=== PATIENT | female | born 1980 | race Caucasian/White ===

== ENCOUNTER 2016-08-27 17:51 | Emergency (ER) | payer MEDICAID, OTHER ==
[2016-08-27 18:02] VITALS: BP 137/72
[2016-08-27] MEDS ORDERED: Ibuprofen TAB* 600 MG PO ONE ×2 (18:54)
[2016-08-27] MEDS ORDERED: Cyclobenzaprine TAB* 10 MG PO ONE ×2 (18:54)
[2016-08-27] MEDS ORDERED: Lidocaine PATCH 5%* 1 PATCH TRANSDERM SCH (20:00)
[2016-08-27] MEDS ORDERED: Lidocaine PATCH 5%* 1 PATCH ONE ×2 (20:30)
--- NOTE | 2016-08-27 21:06 | ED ---
Back Pain - HPI Summary HPI Summary: 36 y/o female s/p fall on ice yesterday, fell backwards, hitting head and full body on ground, denies LOC, mild headache currently but right frontal- h/o migraines that happen in this area, unsure if this is why, no lightheadedness, dizziness, no N/V, vision changes. Patient c/o Neck pain, anterior, L sided. no difficulty swallowing, no difficulty walking. + lower back pain, midline lower back. + diffuse abdominal pain, "feels like muscel pain". + eating well , no blood urine/ stool, + normal urine stool since incident. last ate chicken salad sandwich without any problems. 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 Onset/Duration: Sudden Onset, Lasting Days, Still Present, Worse Since - This AM Timing: Constant, Lasting Hours Back Pain Location: Is Discrete @ - L front neck Severity Initially: Moderate Severity Currently: Moderate Pain Intensity: 5 Pain Scale Used: 0-10 Numeric <Rosa Swain - Last Filed: 08/27/16 21:07> <Itz Callaway - Last Filed: 09/04/16 23:24> - History of Current Complaint Chief Complaint: EDHeadInjury Stated Complaint: FELL/HEAD NECK PAIN Time Seen by Provider: 08/27/16 18:27 - Allergies/Home Medications Allergies/Adverse Reactions: Allergies Allergy/AdvReac Type Severity Reaction Status Date / Time Codeine Allergy Unknown Unknown Verified 12/10/15 22:11 [From Tylenol W/Codeine] Reaction Details Cefaclor [From Ceclor] Allergy Hives Verified 12/10/15 22:11 Cefuroxime [From Ceftin] Allergy Hives Verified 12/10/15 22:11 Clindamycin Allergy Rash And Verified 12/10/15 22:11 Itching Morphine Allergy Vomiting Verified 12/10/15 22:11 PMH/Surg Hx/FS Hx/Imm Hx Previously Healthy: No Endocrine/Hematology History: Reports: Hx Anemia Denies: Hx Diabetes Cardiovascular History: Denies: Hx Congestive Heart Failure, Hx Hypertension Respiratory History: Denies: Hx Sleep Apnea - pt feels she has but has not been checked History: Reports: Hx Kidney Stones, Other Problems/Disorders - hx UTI, not currently Denies: Hx Renal Disease Neurological History: Reports: Hx Migraine, Other Neuro Impairments/Disorders - blurry vision, restless leg lately - Surgical History Surgery Procedure, Year, and Place: [place], [place], tonsilectomy, x3, tubal ligation - Immunization History Date of Tetanus Vaccine: unknown Date of Influenza Vaccine: unknown Infectious Disease History: No Infectious Disease History: Denies: History Other Infectious Disease, Traveled Outside the [place] in Last 30 Days - Family History Known Family History: Positive: Other - noncontributory - Social History Alcohol Use: None Hx Substance Use: No Substance Use Type: Reports: Excessive Caffeine Hx Tobacco Use: Yes Smoking Status (MU): Light Every Day Tobacco Smoker Type: Cigarettes Amount Used/How Often: 1/2 PPD <Rosa Swain - Last Filed: 08/27/16 21:07> Review of Systems Constitutional: Negative Eyes: Negative ENT: Negative Cardiovascular: Negative Respiratory: Negative Positive: Abdominal Pain Genitourinary: Negative Positive: Arthralgia - lower back , Myalgia Skin: Negative Positive: Headache - mild right frontal Psychological: Normal All Other Systems Reviewed And Are Negative: Yes <Rosa Swain - Last Filed: 08/27/16 21:07> Physical Exam Triage Information Reviewed: Yes Vital Signs On Initial Exam: Initial Vitals Temp Pulse Resp BP Pulse Ox 97.7 F 78 16 137/72 100 08/27/16 17:57 08/27/16 17:57 08/27/16 17:57 08/27/16 17:57 08/27/16 17:57 Vital Signs Reviewed: Yes Appearance: Positive: Well-Appearing, Well-Nourished, Pain Distress - none at rest, mild with movement Skin: Positive: Warm, Skin Color Reflects Adequate Perfusion Head/Face: Positive: Normal Head/Face Inspection Eyes: Positive: Normal, EOMI, CELINA, Conjunctiva Clear ENT: Positive: Normal ENT inspection, Hearing grossly normal Neck: Positive: Supple, No Lymphadenopathy, Tenderness @ - along SCM muscle from origin to insertion, + tenderness over trap muscle, Abdomen Description: Positive: No Organomegaly, Soft, Bruit, Other: - No gaurding, no rebound tenderness, diffuse tenderness to moderate palpation of rectus muslces, no pain to side of muscles, neg CVA tenderness B/L. Musculoskeletal: Positive: Normal, Strength/ROM Intact - UE and LE's, neg speed , neg bear hug, hand worker strength 5/5 b/l, full thumb ROM, no tenderness shoulder/ clavicle b/l., Other - cervical ROM full with forward flexion, extension, Left ear to shoudler full, right ear to right shoulder decreased by ~ 50%, but strength intact. Neurological: Positive: Normal, Sensory/Motor Intact, Alert, Oriented to Person Place, Time, CN Intact II-III, Reflexes Intact - patellar equal B/L, Normal Gait , Facial Symmetry, Speech Normal Psychiatric: Positive: Normal AVPU Assessment: Alert - Niles Coma Scale Best Eye Response: 4 - Spontaneous Best Motor Response: 6 - Obeys Commands Best Verbal Response: 5 - Oriented <Rosa Swain - Last Filed: 08/27/16 21:07> Vital Signs On Initial Exam: Initial Vitals Temp Pulse Resp BP Pulse Ox 97.7 F 78 16 137/72 100 08/27/16 17:57 08/27/16 17:57 08/27/16 17:57 08/27/16 17:57 08/27/16 17:57 <Itz Callaway - Last Filed: 09/04/16 23:24> Diagnostics - Vital Signs Vital Signs Temp Pulse Resp BP Pulse Ox 08/27/16 17:57 97.7 F 78 16 137/72 100 <Rosa Swain - Last Filed: 08/27/16 21:07> - Vital Signs Vital Signs Temp Pulse Resp BP Pulse Ox 08/27/16 17:57 97.7 F 78 16 137/72 100 <Itz Callaway - Last Filed: 09/04/16 23:24> Back Pain Course/Dx - Course Course Of Treatment: lidoderm patch placed, patient drove, given flexeril to go home, lumbar X-ray ordered, patient unable to stay due to childcare, will call with final results - Diagnoses Differential Diagnosis/HQI/PQRI: Positive: Strain, Sprain <Rosa Swain - Last Filed: 08/27/16 21:07> <Itz Callaway - Last Filed: 09/04/16 23:24> - Diagnoses Provider Diagnoses: Torticollis, acquired Discharge <Rosa Swain - Last Filed: 08/27/16 21:07> <Itz Callaway - Last Filed: 09/04/16 23:24> - Discharge Plan Condition: Good Disposition: HOME Prescriptions: Cyclobenzaprine TAB* [Flexeril TAB*] 10 mg PO Q8H PRN #10 tab PRN Reason: spasm Lidocaine PATCH 5%* [Lidoderm 5% Patch*] 1 patch TRANSDERM DAILY #10 patch Patient Education Materials: Spasmodic Torticollis (ED) Referrals: No Primary Care Phys,NOPCP [Primary Care Provider] - Additional Instructions: - flexeril as needed for muscle spasm per orders - Warm compresses OK - Lidoderm patch as needed for pain/ spasm - Follow up with primary physician if symptoms worsen - Return to ER with incontinence, increased symptoms, numbness, tingling.
--- NOTE | 2016-08-27 21:59 | RAD ---
INDICATION: Back pain after a fall with tenderness overlying L4/L5 COMPARISON: CT abdomen pelvis dated October 24, 2015 TECHNIQUE: 5 views of the lumbar spine were obtained. FINDINGS: The vertebra are in normal alignment. No fracture is seen. Disc spaces appear maintained. . IMPRESSION: No evidence of fracture or subluxation.
[2016-08-28] MEDS ORDERED: Lidocaine Patch REMOVE* 1 NOTE MISC PATCH OFF SCH (08:00)
== END 2016-08-27 21:22 | disposition home or self-care (01) ==
LOC: ED 17:51
DX: M43.6 Torticollis (principal); M54.2 Cervicalgia; F17.210 Nicotine dependence, cigarettes, uncomplicated
CPT/HCPCS: 72110; 99282; A9270-GY

== ENCOUNTER 2016-10-28 12:51 | Emergency (ER) | payer OTHER ==
[2016-10-28 13:37] VITALS: BP 108/66
--- NOTE | 2016-10-28 14:55 | UC ---
Marianna Issa Salem, scribed for Paresh Snyder MD on 10/28/16 at 1401 . Shoulder Pain HPI - HPI Summary HPI Summary: Patient is a 36 y/o female who presents to the with right shoulder and neck pain since yesterday. She reports falling 3 days ago, but does not think the fall is caused the injury as she denies falling on her shoulder. She states it is difficult to sleep on her right shoulder and that it will intermittently go numb. She also states she cannot lift her right arm above her head because of it. - History of Current Complaint Chief Complaint: UCUpperExtremity Stated Complaint: NECK/SHOULDER INJURY Time Seen by Provider: 10/28/16 13:34 Hx Obtained From: Patient Hx Last Menstrual Period: 10/28/16 Onset/Duration: Gradual Onset, Lasting Days Severity Initially: Moderate Severity Currently: Moderate Aggravating Factor(s): Nothing Alleviating Factor(s): Nothing Associated Signs And Symptoms: Positive: Numbness/Tingling - Allergies/Home Medications Allergies/Adverse Reactions: Allergies Allergy/AdvReac Type Severity Reaction Status Date / Time Codeine Allergy Unknown Unknown Verified 12/10/15 22:11 [From Tylenol W/Codeine] Reaction Details Cefaclor [From Ceclor] Allergy Hives Verified 12/10/15 22:11 Cefuroxime [From Ceftin] Allergy Hives Verified 12/10/15 22:11 Clindamycin Allergy Rash And Verified 12/10/15 22:11 Itching Morphine Allergy Vomiting Verified 12/10/15 22:11 Home Medications: Home Medications Exedrine 10/28/16 [History] PMH/Surg Hx/FS Hx/Imm Hx Endocrine History Of: Denies: Diabetes Cardiovascular History Of: Denies: Hypertension, Congestive Heart Failure GI/ History Of: Reports: Kidney Stones Denies: Renal Disease Neurological History Of: Reports: Migraine - Surgical History Surgical History: Yes Surgery Procedure, Year, and Place: [place], app[place], tonsilectomy, x3, tubal ligation - Family History Known Family History: Positive: Hypertension - Father., Other - noncontributory - Social History Alcohol Use: None Substance Use Type: Excessive Caffeine Smoking Status (MU): Light Every Day Tobacco Smoker Type: Cigarettes Amount Used/How Often: 1/2 PPD Household Exposure Type: Cigarettes - Immunization History Most Recent Influenza Vaccination: never Most Recent Tetanus Shot: unknown Most Recent Pneumonia Vaccination: never Review of Systems Constitutional: Negative Musculoskeletal: Other: - Numbness in shoulder. All Other Systems Reviewed And Are Negative: Yes Physical Exam Triage Information Reviewed: Yes Appearance: Well-Appearing, No Pain Distress, Other: - Comfortable. Pleasant. Vital Signs: Initial Vital Signs Temp 97.3 F 10/28/16 13:24 Pulse 69 10/28/16 13:24 Resp 16 10/28/16 13:24 BP 108/66 10/28/16 13:24 Pulse Ox 100 10/28/16 13:24 Vital Signs Reviewed: Yes ENT: Positive: Other: - MMM. Neck: Positive: Supple, Nontender, No Lymphadenopathy Respiratory: Positive: Lungs clear. Negative: Wheezing Cardiovascular: Positive: RRR, No Murmur, Other: - No gallops or rubs. Abdomen Description: Positive: Nontender, No Organomegaly, Soft Musculoskeletal: Positive: Other: - No midline cervical spine tenderness. Full ROM c-spine. Negative Spurlings Test. Obvious pain of trapezius and supraspinous. Positive impingement. Aplay crossover causes pain. Lateral reduction causes pain. External rotation causes pain as well. Neurological: Positive: Alert Psychological: Positive: Age Appropriate Behavior Shoulder Course/Dx - Course Course Of Treatment: No significant traumatic injury. Exam consistent with rotator cuff tendonitis or impingement. Neck exam normal. No signs of disk herniation. Physical Therapy nolberto is in. Orthopedic referral. - Differential Dx/Diagnosis Differential Diagnosis/HQI/PQRI: Abrasion, AC Separation, Arthritis, Bursitis, Contusion, Fracture (Closed), Fracture (Open), Sprain, Strain, Tendonitis Provider Diagnoses: Rotator cuff injury. Discharge - Discharge Plan Condition: Stable Disposition: HOME Prescriptions: Naproxen TAB* [Naprosyn TAB*] 500 mg PO BID #20 tab Patient Education Materials: Rotator Cuff Injury (ED) Forms: *Work Release Referrals: Varsha Ceron MD [Medical Doctor] - Additional Instructions: Follow up with PCP. The documentation as recorded by the Marianna bhatti Salem accurately reflects the service I personally performed and the decisions made by , Paresh Snyder MD.
== END 2016-10-28 14:09 | disposition home or self-care (01) ==
LOC: UCEAST 12:51
DX: S46.001A Unspecified injury of muscle(s) and tendon(s) of the rotator cuff of right shoulder, initial encounter (principal); W19.XXXA Unspecified fall, initial encounter; Y93.9 Activity, unspecified; Y92.9 Unspecified place or not applicable; Z88.1 Allergy status to other antibiotic agents; Z88.5 Allergy status to narcotic agent; Z90.49 Acquired absence of other specified parts of digestive tract; F17.210 Nicotine dependence, cigarettes, uncomplicated
CPT/HCPCS: 99212; G0463

== ENCOUNTER 2016-10-30 17:22 | Emergency (ER) | payer OTHER ==
[2016-10-30 17:42] VITALS: BP 120/79
--- NOTE | 2016-10-30 20:41 | ED ---
Upper Extremity Pain - HPI Summary HPI Summary: Patient presents with right shoulder pain that began when she fell and braced her fall with her right arm 5 days ago. She had pain but was able to get through work until it was too painful and she sought evaluation at [facility]. She was diagnosed with a rotator cuff injury and referred to physical therapy. Today she re-insulted the shoulder when she tried to pull a door open that was frozen shut. She has pain with any movement of the shoulder, especially elevation. She is using naproxen with mild relief. She notices some swelling in her hand as well. She is able to move the elbow, wrist and hand without discomfort. No N/T, warmth, or fevers. 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 Mechanism Of Injury: Fall From A Standing Position Onset/Duration: Started Days Ago Timing: Constant Severity Initially: Moderate Severity Currently: Severe Pain Location: Shoulder Character: Sharp, Aching, Stiffness Aggravating Factor(s): Movement, Lifting Alleviating Factor(s): Nothing Associated Signs & Symptoms: Positive: Negative Related History: Dominant Hand Right - Allergies/Home Medications Allergies/Adverse Reactions: Allergies Allergy/AdvReac Type Severity Reaction Status Date / Time Codeine Allergy Unknown Unknown Verified 12/10/15 22:11 [From Tylenol W/Codeine] Reaction Details Cefaclor [From Ceclor] Allergy Hives Verified 12/10/15 22:11 Cefuroxime [From Ceftin] Allergy Hives Verified 12/10/15 22:11 Clindamycin Allergy Rash And Verified 12/10/15 22:11 Itching Morphine Allergy Vomiting Verified 12/10/15 22:11 PMH/Surg Hx/FS Hx/Imm Hx Endocrine/Hematology History: Reports: Hx Anemia Denies: Hx Diabetes Cardiovascular History: Denies: Hx Congestive Heart Failure, Hx Hypertension Respiratory History: Denies: Hx Sleep Apnea - pt feels she has but has not been checked History: Reports: Hx Kidney Stones, Other Problems/Disorders - hx UTI, not currently Denies: Hx Renal Disease Neurological History: Reports: Hx Migraine, Other Neuro Impairments/Disorders - blurry vision, restless leg lately - Surgical History Surgery Procedure, Year, and Place: [place], app[place], tonsilectomy, x3, tubal ligation - Immunization History Date of Tetanus Vaccine: unknown Date of Influenza Vaccine: unknown Infectious Disease History: No Infectious Disease History: Denies: History Other Infectious Disease, Traveled Outside the [place] in Last 30 Days - Family History Known Family History: Positive: Hypertension - Father., Other - noncontributory - Social History Occupation: Employed Full-time Lives: With Family Alcohol Use: None Hx Substance Use: No Substance Use Type: Reports: Excessive Caffeine Hx Tobacco Use: Yes Smoking Status (MU): Light Every Day Tobacco Smoker Type: Cigarettes Amount Used/How Often: 1/2 PPD Cessation Counseling: Patient Advised to Stop Review of Systems Negative: Fever Positive: Myalgia, Decreased ROM - right shoulder, Edema - mild Negative: Bruising Negative: Weakness, Paresthesia, Numbness All Other Systems Reviewed And Are Negative: Yes Physical Exam Triage Information Reviewed: Yes Vital Signs On Initial Exam: Initial Vitals Temp Pulse Resp BP Pulse Ox 97.8 F 75 18 120/79 97 10/30/16 17:38 10/30/16 17:38 10/30/16 17:38 10/30/16 17:38 10/30/16 17:38 Vital Signs Reviewed: Yes Appearance: Positive: Well-Appearing, Well-Nourished, Pain Distress Skin: Positive: Warm, Skin Color Reflects Adequate Perfusion, Dry, Soft Head/Face: Positive: Normal Head/Face Inspection Eyes: Positive: EOMI, CELINA, Conjunctiva Clear ENT: Positive: Hearing grossly normal Respiratory/Lung Sounds: Positive: Breath Sounds Present Cardiovascular: Positive: RRR Musculoskeletal: Positive: Limited @ - right shoulder FF, ER/IR limited due to pain; PROM limited to 90 degrees of FF/abduction, Pain @ - TTP right deltoid insertion at acromion and bicipital groove., Edema Right - mild in hand Neurological: Positive: Sensory/Motor Intact, Alert, Oriented to Person Place, Time, NV Bundle Intact Distally Psychiatric: Positive: Affect/Mood Appropriate AVPU Assessment: Alert Diagnostics - Vital Signs Vital Signs Temp Pulse Resp BP Pulse Ox 10/30/16 18:24 99.3 F 10/30/16 17:38 97.8 F 75 18 120/79 97 - Laboratory Lab Statement: Any lab studies that have been ordered have been reviewed, and results considered in the medical decision making process. Course/Dx - Course Course Of Treatment: Patient does not have a PCP, therefore she will be given information regarding obtaining one for follow-up care. She will use the sling to allow the arm to rest, in conjunction with naproxen, ice/heat and rest. - Diagnoses Differential Diagnosis/HQI/PQRI: Positive: Arthritis, Bursitis, Contusion, Fracture (Closed), Localized Burn, Strain, Sprain Provider Diagnoses: Rotator cuff strain Discharge - Discharge Plan Condition: Stable Disposition: HOME Patient Education Materials: Rotator Cuff Injury (ED) Forms: *Work Release Referrals: [facility] [Outside] Additional Instructions: [facility] Physical Therapy : [address] [place] [address] Jose Plunkett, PT: [address] [facility]: You can call one of the numbers listed to see who can take your insurance for physical therapy. Call the number listed on your discharge paperwork to establish care with provider who is accepting new patients. Use your naproxen daily and ice or heat to decrease pain and swelling in your shoulder. Wear the sling as needed for pain. Return to the emergency department if symptoms worsen.
== END 2016-10-30 18:24 | disposition home or self-care (01) ==
LOC: ED 17:22
DX: S46.011A Strain of muscle(s) and tendon(s) of the rotator cuff of right shoulder, initial encounter (principal); M25.511 Pain in right shoulder; F17.210 Nicotine dependence, cigarettes, uncomplicated; W19.XXXA Unspecified fall, initial encounter; Y93.9 Activity, unspecified; Y92.9 Unspecified place or not applicable
CPT/HCPCS: 99281

== ENCOUNTER 2017-02-11 19:45 | Emergency (ER) | payer OTHER ==
[2017-02-11 19:53] VITALS: BP 117/76
== END 2017-02-11 21:10 | disposition left against medical advice (07) ==
LOC: UCEAST 19:45
DX: R51 Headache (principal); Z53.21 Procedure and treatment not carried out due to patient leaving prior to being seen by health care provider

== ENCOUNTER 2017-03-14 11:43 | Emergency (ER) | payer OTHER ==
--- NOTE | 2017-03-14 13:19 | RAD ---
Indication: Foreign body in the right index finger 3 views of the right index finger demonstrates a radiopaque foreign body in the volar aspect of the distal phalanx of the index finger. IMPRESSION: Foreign body in the volar aspect of the distal tip of the right index finger.
--- NOTE | 2017-03-14 13:48 | UC ---
Skin Complaint HPI - HPI Summary HPI Summary: WAS WASHING A GLASS AT HOME ABOUT 8:30AM AND THE GLASS BROKE. THINKS SHE HAS A PIECE OF GLASS STUCK IN THE TIP OF HER RIGHT 2ND FINGER. RIGHT HAND DOMINANT - History of Current Complaint Chief Complaint: UCForeignBody Time Seen by Provider: 03/14/17 13:44 Stated Complaint: FB IN FINGER Hx Obtained From: Patient Hx Last Menstrual Period: 03/10/17 Onset/Duration: Sudden Onset, Lasting Hours, Still Present Skin Exposure Onset/Duration: Hours Ago Timing: Constant Onset Severity: Moderate Current Severity: Moderate Pain Intensity: 6 Pain Scale Used: 0-10 Numeric Location: Hand (Right) - RIGHT 2ND FINGER Character: Pain Aggravating: Touch Alleviating: Nothing Associated Signs & Symptoms: Positive: Negative Related History: Foreign Body - Allergy/Home Medications Allergies/Adverse Reactions: Allergies Allergy/AdvReac Type Severity Reaction Status Date / Time Codeine Allergy Unknown Unknown Verified 02/11/17 19:53 [From Tylenol W/Codeine] Reaction Details Cefaclor [From Ceclor] Allergy Hives Verified 02/11/17 19:53 Cefuroxime [From Ceftin] Allergy Hives Verified 02/11/17 19:53 Clindamycin Allergy Rash And Verified 02/11/17 19:53 Itching Morphine Allergy Vomiting Verified 02/11/17 19:53 Review of Systems Constitutional: Negative Skin: Other - LACERATION AND PAIN RIGHT 2ND FINGER Respiratory: Negative Cardiovascular: Negative Gastrointestinal: Negative All Other Systems Reviewed And Are Negative: Yes PMH/Surg Hx/FS Hx/Imm Hx Previously Healthy: Yes - Surgical History Surgical History: Yes Surgery Procedure, Year, and Place: [place], app[place], tonsilectomy, x3, tubal ligation - Family History Known Family History: Positive: Hypertension - Father., Other - noncontributory - Social History Alcohol Use: None Substance Use Type: Excessive Caffeine Smoking Status (MU): Light Every Day Tobacco Smoker Type: Cigarettes Amount Used/How Often: 1/2 PPD Household Exposure Type: Cigarettes - Immunization History Most Recent Influenza Vaccination: never Most Recent Tetanus Shot: unknown Most Recent Pneumonia Vaccination: never Physical Exam Triage Information Reviewed: Yes Appearance: Well-Appearing, No Pain Distress, Well-Nourished Vital Signs: Initial Vital Signs Temp 97 F 03/14/17 11:50 Pulse 77 03/14/17 11:50 Resp 20 03/14/17 11:50 BP 111/67 03/14/17 11:50 Pulse Ox 99 03/14/17 11:50 Vital Signs Reviewed: Yes Eyes: Positive: Conjunctiva Clear ENT: Positive: Hearing grossly normal Neck: Positive: Supple Respiratory: Positive: No respiratory distress, No accessory muscle use Cardiovascular: Positive: Pulses Normal Abdomen Description: Positive: Soft Musculoskeletal: Positive: ROM Intact, No Edema Neurological: Positive: Alert Psychological: Positive: Age Appropriate Behavior Skin: Positive: Other - 1 CM LINEAR LACERATION VOLAR ASPECT OF DISTAL RIGHT INDEX FINGER WITH PALPABLE FB Diagnostics - Radiology RIGHT 2ND FINGER XRAY Xray Interpretation: Positive (See Comments) - Foreign body in the volar aspect of the distal tip of the right index finger. Radiology Interpretation Completed By: Radiologist Course/Dx - Course Course Of Treatment: GLASS FB GRASPED WITH SPLINTER FORCEPS AND SUCCESSFULLY REMOVED. NO ANESTHESIA REQUIRED. TDAP BOOSTED. - Diagnoses Provider Diagnoses: 1. GLASS FB RIGHT 2ND FINGER REMOVED. 2. TDAP BOOSTER Discharge - Discharge Plan Condition: Stable Disposition: HOME Patient Education Materials: Soft Tissue Foreign Body (ED) Referrals: Attila Carrillo MD [Primary Care Provider] - If Needed Additional Instructions: GLASS FOREIGN BODY REMOVED SUCCESSFULLY. OTC MEDS NEEDED FOR DISCOMFORT. SEEK FOLLOW-UP IF YOU DEVELOP SPREADING REDNESS OF THE SKIN, PURULENT DRAINAGE, FEVER, INCREASED PAIN OR ANY OTHER CONCERNING SYMPTOMS. TETANUS IMMUNIZATION GIVEN (TDAP): You have been given an immunization against tetanus. Please record this in your records. In general, a booster is needed only once every 10 years. The tetanus shot protects against tetanus or "lockjaw," which is a complication of certain wound infections (the tetanus shot cannot protect against the actual infection). The immunization site may become warm and red due to local reaction. If this occurs, apply warm compresses and take aspirin or ibuprofen to reduce inflammation and discomfort. Return for evaluation if the reaction becomes severe.
[2017-03-14] MEDS ORDERED: Lidocaine 2% PF * 5 ML VIAL INJ ONE (13:51)
[2017-03-14] MEDS ORDERED: Tetan/Diph/Pertus SYR(Tdap)* 0.5 ML SYR(BOOSTRIX) use SYR IM ONE (13:59)
[2017-03-14 14:00] VITALS: BP 123/76
== END 2017-03-14 14:17 | disposition home or self-care (01) ==
LOC: UCEAST 11:43
DX: S61.220A Laceration with foreign body of right index finger without damage to nail, initial encounter (principal); W25.XXXA Contact with sharp glass, initial encounter; W45.8XXA Other foreign body or object entering through skin, initial encounter; Y93.G1 Activity, food preparation and clean up; Y92.9 Unspecified place or not applicable; Y99.9 Unspecified external cause status; Z23 Encounter for immunization; Z88.5 Allergy status to narcotic agent; Z88.1 Allergy status to other antibiotic agents; F17.210 Nicotine dependence, cigarettes, uncomplicated
CPT/HCPCS: 10120; 73140; 90471; 90715; 99212; G0463

== ENCOUNTER 2017-10-14 10:15 | Emergency (ER) | payer OTHER ==
--- NOTE | 2017-10-14 12:32 | UC ---
Dental HPI - HPI Summary HPI Summary: 37 y/o female present to the urgent care c/o RT wisdom toothache and fracture molar in the RT lower jaw sicne 07/2017. Pt reporst she was Rx Antibiotics on 07/2017 and symptoms resolved. However her Dentist appt is on 10/16/2017 and schedule for oral surgery on 10/20/2017 at [place]. About 1 weeks ago dental pain returned. She has taken Tylenol, Ibuprofen and Naproxen to alleviate pain w/o any relief. She requests ABx and Tramadol for her pain. She is allergic to codeine, but in Dec she took tramadol and she tolerated well medication. She has taken Tyelnol 1 tab Po q6hrs/day and Ibuprofen 3 tabs q8hrs. However this morning at 0500AM she took 4 tabs of Tylenol PO and around 0800AM 2 tabs of Naproxen (500mg) to relief pain. Pain now is 6/10. Pt denies fever, N/V/D, abdominal pain, dizziness, confusion, SOB, chest pain, Urinary symptoms, hematuria, trismus or TMJ pain, tinnitus - History of Current Complaint Chief Complaint: UCDentalProblem Stated Complaint: TOOTH ACHE Time Seen by Provider: 10/14/17 12:30 Hx Obtained From: Patient Hx Last Menstrual Period: 10/02/17 ?: No Onset/Duration: Gradual Onset, Lasting Weeks - 2 months, Still Present, Worse Since - last week Severity: Moderate Pain Intensity: 6 Pain Scale Used: 0-10 Numeric Aggravating Factor(s): Cold, Chewing Alleviating Factor(s): OTC Meds Related History: Previous Dental Care on Same Tooth - Allergies/Home Medications Allergies/Adverse Reactions: Allergies Allergy/AdvReac Type Severity Reaction Status Date / Time cefaclor [From Ceclor] Allergy Hives Verified 10/14/17 10:30 cefuroxime [From Ceftin] Allergy Hives Verified 10/14/17 10:30 clindamycin Allergy Rash And Verified 10/14/17 10:30 Itching codeine Allergy Unknown Verified 10/14/17 10:30 Reaction Details morphine Allergy Difficulty Verified 10/14/17 10:30 Breathing PMH/Surg Hx/FS Hx/Imm Hx Previously Healthy: Yes Psychological History: Anxiety, Depression - Surgical History Surgical History: Yes Surgery Procedure, Year, and Place: [place], app[place], tonsilectomy, x3, tubal ligation - Family History Known Family History: Positive: Hypertension - Father., Other - noncontributory - Social History Occupation: Unemployed Lives: With Family Alcohol Use: None Alcohol Amount: Swishing with Whiskey Substance Use Type: None Smoking Status (MU): Light Every Day Tobacco Smoker Type: Cigarettes Amount Used/How Often: 4-5cig/day Household Exposure Type: Cigarettes - Immunization History Most Recent Influenza Vaccination: never Most Recent Tetanus Shot: unknown Most Recent Pneumonia Vaccination: never Review of Systems Constitutional: Negative Skin: Negative Eyes: Negative ENT: Dental Pain - RT lower wisdom molar and fracture molar Respiratory: Negative Cardiovascular: Negative Gastrointestinal: Negative Genitourinary: Negative Motor: Negative Neurovascular: Negative Musculoskeletal: Negative Neurological: Headache Psychological: Negative Is Patient Immunocompromised?: No All Other Systems Reviewed And Are Negative: Yes Physical Exam Triage Information Reviewed: Yes Vital Signs: Initial Vital Signs Temp 98.4 F 10/14/17 10:33 Pulse 83 10/14/17 10:33 Resp 18 10/14/17 10:33 BP 109/64 10/14/17 10:33 Pulse Ox 99 10/14/17 10:33 - Additional Comments Vital Signs Reviewed: Yes General: well developed. well nourished female sitting in the examining table w/ o any apparent distress Eyes: Positive: Conjunctiva Clear - PERRLA, EOMI, fundi grossly normal ENT: Positive: Normal ENT inspection, Hearing grossly normal, Pharyngeal erythema, TMs normal, Uvula midline. Negative: Tonsillar swelling, Tonsillar exudate, Trismus Dental: Positive: Percussion Tenderness @ - molar 32 w/ surrounding mild swelling, Gross Decay/Caries @ - molar 28 and 32, Abscess @ - molar 32, Cervical Lymphadenopathy - B/L anterior, No TMJ tenderness, no trismus Neck: Positive: Supple, Nontender Respiratory: Positive: Chest non-tender, Lungs clear, Normal breath sounds, No respiratory distress Cardiovascular: Positive: RRR, No Murmur, Pulses Normal, Brisk Capillary Refill Abdomen Description: Positive: Nontender, No Organomegaly, Soft. Negative: CVA Tenderness (R), CVA Tenderness (L) Bowel Sounds: Positive: Present Musculoskeletal: Positive: Strength Intact, ROM Intact, No Edema Neurological Exam: Normal Psychological Exam: Normal Skin Exam: Normal Dental Complaint Course/Dx - Course Course Of Treatment: 37 y/o female present to the urgent care c/o RT wisdom toothache and fracture molar in the RT lower jaw sicne 07/2017. Pt reporst she was Rx Antibiotics on 07/2017 and symptoms resolved. However her Dentist appt is on 10/16/2017 and schedule for oral surgery on 10/20/2017 at [place]. About 1 weeks ago dental pain returned. She has taken Tylenol, Ibuprofen and Naproxen to alleviate pain w/o any relief. She requests ABx and Tramadol for her pain. She is allergic to codeine, but in Dec she took tramadol and she tolerated well medication. She has taken Tyelnol 1 tab Po q6hrs/day and Ibuprofen 3 tabs q8hrs. However this morning at 0500AM she took 4 tabs of Tylenol PO and around 0800AM 2 tabs of Naproxen (500mg) to relief pain. Pain now is 6/10. Pt denies fever, N/V/D, abdominal pain, dizziness, confusion, SOB, chest pain, Urinary symptoms, hematuria, trismus or TMJ pain or tinnitus. Hx obtained.Pt with probably mild dental abscess molar on 32 and fracture molar w/ gross decay on molar 28 and 32 on examination. Pt given viscous Lidocaine at the clinic to alleviate symptoms. Pt felt better. Pt educated on how to take the Tylenol/ Ibuprofen. Pt at this momement is hemodynamically stable.A&OX3, feeling better. She took 4tabs of tylenol this morning = 2000mg. Max dose /nnf=6134mj PO. Pt strongly advised not take any more tylenol PO today and RX Tramadol PO and instructed how to take it. Pt also Rx Augmentin PO and strongly advised to f/u her dentis appt on 10/16/2017 for futher evaluation and treatment. Pt understood and agreed with plan of care. Left the clinic ambulating. - Differential Dx/Diagnosis Differential Diagnosis/Dx: Dental Abscess, Fractured Tooth, Odontogenic Pain, Peridontic Disease, Peritonsillar Abcess, Pharyngitis, TMJ Syndrome Provider Diagnoses: 1- Dental abscess at molar #32. 2- fractured molar #28 Discharge - Discharge Plan Condition: Stable Disposition: HOME Prescriptions: Amoxicillin/Clavulanate TAB* [Augmentin TAB 875*] 875 mg PO BID #20 tab traMADol TAB* [Ultram*] 25 mg PO Q6HR PRN #12 tab MDD 100mg/day PRN Reason: Pain Patient Education Materials: Dental Abscess (ED), Toothache (ED) Referrals: Attila Carrillo MD [Primary Care Provider] - 2 Days Additional Instructions: 1-Please take full course of antibiotic to avoid resistance. 2- Take Tramadol as instructed after meals to alleviate pain and swelling. Pleas stop taking Tylenol/ Ibuprofen PO at once as you did this morning. Take Tyelnol 500mg PO q4-6hrs tomorrow if tramadol is not helping w/ pain. 3- F/u with your Dentist appt on 10/16/2017 and orals Surgeon abbe Zuniga on 2017 for further management 4- If symptoms do not improve or worsen go to the Er for further management.
[2017-10-14 12:49] VITALS: BP 115/74
[2017-10-14] MEDS ORDERED: Lidocaine 2% VISCOUS* 15 ML UDC SWISH SPIT ONE (12:54)
== END 2017-10-14 13:19 | disposition home or self-care (01) ==
LOC: UCEAST 10:15
DX: K04.7 Periapical abscess without sinus (principal); K03.81 Cracked tooth; K02.9 Dental caries, unspecified; F41.9 Anxiety disorder, unspecified; F32.9 Major depressive disorder, single episode, unspecified; Z88.1 Allergy status to other antibiotic agents; Z88.5 Allergy status to narcotic agent; F17.210 Nicotine dependence, cigarettes, uncomplicated
CPT/HCPCS: 99212; G0463

== ENCOUNTER 2017-10-30 06:54 | Day surgery (SDC) | payer OTHER ==
[~2017-10-30 06:54] MED LIST: Buffered Lidocaine 0.9% SYRIN* 5 ML/SYR SYRINGE INTRADERM ONE
[2017-10-30] MEDS ORDERED: Buffered Lidocaine 0.9% SYRIN* 5 ML/SYR SYRINGE ONE (07:02)
[2017-10-30] MEDS ORDERED: Lidocaine 1% INJ* 10 MG/ML 30 ML SDV ONE (07:36)
[2017-10-30] MEDS ORDERED: fentaNYL* 50 MCG/ML 2 ML VIAL (100 MCG VIAL) ONE (07:40)
[2017-10-30] MEDS ORDERED: Midazolam* 1 MG/ML 5 ML VIAL (5 MG) ONE (07:41)
[2017-10-30] MEDS ORDERED: Propofol* 10 MG/ML 20 ML BTL IV PUSH ONE (07:59)
[2017-10-30] MEDS ORDERED: Silver Nitrate/Potassium Nitr* 1 EA STICK ONE (08:15)
[2017-10-30] MEDS ORDERED: Ketorolac INJ* 30 MG/ML 1 ML VIAL ONE (08:15)
[2017-10-30] MEDS ORDERED: Ondansetron INJ* 2 MG/ML VIAL IV PRN (08:24)
[2017-10-30] MEDS ORDERED: Acetaminophen TAB* 325 MG PO PRN (08:24)
[2017-10-30] MEDS ORDERED: Naloxone* 0.4 MG/ML 1 ML VIAL IV PRN (08:24)
[2017-10-30] MEDS ORDERED: Ondansetron INJ* 2 MG/ML VIAL ONE (08:48)
[2017-10-30] MEDS ORDERED: oxyCODONE/Acetamin 5/325 MG* TAB ONE (09:40)
[2017-10-30 10:11] VITALS: BP 98/68
--- NOTE | 2017-10-30 23:57 | OP ---
AMENDED REPORT NOW INCLUDES DATE OF OPERATION - ESIGNED BEFORE ADJUSTMENT * DATE OF OPERATION: 10/30/17 - SDS DATE OF : 80 SURGEON: Ayaz Schmitt MD ANESTHESIA: Spinal. PRE-OP DIAGNOSIS: Menorrhagia. POST-OP DIAGNOSIS: Menorrhagia. OPERATIVE PROCEDURE: D and C, hysteroscopy, and endometrial ablation. ESTIMATED BLOOD LOSS: Minimal. SPECIMEN: Includes endometrium. FINDINGS: Include a normal uterus, which was midposition and on hysteroscopy, normal cavity was seen with menstrual lining. DESCRIPTION OF PROCEDURE: The patient identified, procedure identified as a D and C, hysteroscopy and endometrial ablation. The patient was taken to the operating room and prepped and draped in the usual fashion in the dorsal lithotomy position under spinal anesthesia. Two single-toothed tenaculums were placed on the anterior lip of the cervix. The cervix was dilated up to a #8 Hegar dilator. The sounding length was 8 cm, cervical length was 2.5 cm making the cavity length 5.5. Hysteroscope was inserted. The above findings were noted. A sharp curette was inserted and sharp curettage was performed. The NovaSure device was opened. Array was checked. The device was placed in the uterine cavity with a cavity width of 4.6 cm, power setting of 139. The CO2 perforation test was performed and the device passed. The device was enabled and NovaSure ablation took place for 50 seconds. At the end of the procedure, the hysteroscope was reinserted and a good NovaSure ablation was noted throughout the cavity. All instruments were removed from the vagina. The connecting sides were cauterized using silver nitrate with good hemostasis and the patient returned to recovery room in stable condition. All sponge and instrument counts were correct. [id number]/[facility] #: [id number] [facility]
== END 2017-10-30 10:13 | disposition home or self-care (01) ==
LOC: OR 06:54
PROVIDERS: ATTEND Obstetrics & Gynecology
DX: N92.0 Excessive and frequent menstruation with regular cycle (principal); D06.9 Carcinoma in situ of cervix, unspecified; Z87.891 Personal history of nicotine dependence; F41.9 Anxiety disorder, unspecified; R07.89 Other chest pain
CPT/HCPCS: 88305; 88342; A9270-GY; J1885; J2250; J2405; J2704; J3010

== ENCOUNTER 2018-03-05 16:18 | Emergency (ER) | payer OTHER ==
[2018-03-05 16:45] VITALS: BP 96/57
--- NOTE | 2018-03-05 18:59 | UC ---
Dental HPI - HPI Summary HPI Summary: Patient is a 37-year-old female presenting to the with complaint of right lower jaw pain. She states she has an appointment with her dentist in 3 days, but due to pain and slight erythema and swelling around the concerned tooth, she wanted to be placed on antibiotics prior to her appointment if they decide to pull the tooth. She denies any fevers, sweats, chills. Denies any dysphagia or odynophagia. - History of Current Complaint Chief Complaint: UCDentalProblem Stated Complaint: DENTAL Time Seen by Provider: 03/05/18 17:07 Hx Obtained From: Patient Hx Last Menstrual Period: has tubal ?: No Onset/Duration: Sudden Onset Severity: Moderate Pain Intensity: 8 Pain Scale Used: 0-10 Numeric Related History: Previous Dental Care on Same Tooth - Allergies/Home Medications Allergies/Adverse Reactions: Allergies Allergy/AdvReac Type Severity Reaction Status Date / Time codeine Allergy Severe Unknown Verified 03/05/18 16:45 Reaction Details morphine Allergy Severe Difficulty Verified 03/05/18 16:45 Breathing, hives, chest pain cefaclor [From Ceclor] Allergy Intermediate Hives Verified 03/05/18 16:45 cefuroxime [From Ceftin] Allergy Intermediate Hives Verified 03/05/18 16:45 clindamycin Allergy Intermediate Rash And Verified 03/05/18 16:45 Itching PMH/Surg Hx/FS Hx/Imm Hx Previously Healthy: Yes - Surgical History Surgical History: Yes Surgery Procedure, Year, and Place: [place], app[place], tonsilectomy, x3, tubal ligation - Family History Known Family History: Positive: Hypertension - Father., Other - noncontributory - Social History Occupation: Employed Full-time Alcohol Use: None Alcohol Amount: Swishing with Whiskey only for tooth pain- does not drink Substance Use Type: None Smoking Status (MU): Light Every Day Tobacco Smoker Type: Cigarettes Amount Used/How Often: 4-5 cig/day, smoked off and on for 23 years Household Exposure Type: Cigarettes - Immunization History Most Recent Influenza Vaccination: never Most Recent Tetanus Shot: unknown Most Recent Pneumonia Vaccination: never Review of Systems Constitutional: Negative Skin: Negative ENT: Dental Pain Respiratory: Negative Genitourinary: Negative Motor: Negative Neurological: Negative Psychological: Negative Is Patient Immunocompromised?: No All Other Systems Reviewed And Are Negative: Yes Physical Exam Triage Information Reviewed: Yes Appearance: Well-Appearing, No Pain Distress, Well-Nourished Vital Signs: Initial Vital Signs Temp 98.3 F 03/05/18 16:41 Pulse 87 03/05/18 16:41 Resp 18 03/05/18 16:41 BP 96/57 03/05/18 16:41 Pulse Ox 97 03/05/18 16:41 Vital Signs Reviewed: Yes Eye Exam: Normal Dental: Positive: Other: - erythema Neck: Positive: Supple, No Lymphadenopathy Respiratory Exam: Normal Respiratory: Positive: Chest non-tender Cardiovascular Exam: Normal Cardiovascular: Positive: RRR Musculoskeletal Exam: Normal Musculoskeletal: Positive: Strength Intact Psychological: Positive: Normal Response To Family Skin Exam: Normal Dental Complaint Course/Dx - Course Course Of Treatment: During the course of treatment, the patient's evaluated for right lower dental pain. Broken teeth throughout. To the right lower jaw there is slight erythema without evidence of abscess. She is placed on penicillin. She will continue to take her at home ibuprofen. - Differential Dx/Diagnosis Provider Diagnoses: dental pain Discharge - Sign-Out/Discharge Documenting (check all that apply): Patient Departure - Discharge Plan Condition: Stable Disposition: HOME Prescriptions: Penicillin VK 500 MG TAB(NF) [Penicillin VK 500 mg Tab(NF)] 500 mg PO QID #20 tab MDD 4 Forms: *Work Release Referrals: Attila Carrillo MD [Primary Care Provider] - Additional Instructions: Ibuprofen 600mg three times daily Saline mouth rinses Do not smoke - Billing Disposition and Condition Condition: STABLE Disposition: Home Images Dental: 1 - erythema Attestation Statement User Type: Provider - I was available for consult. This patient was seen by the GIANNI. The patient was not presented to, seen by, or examined by me. -[place]
== END 2018-03-05 17:30 | disposition home or self-care (01) ==
LOC: UCEAST 16:18
DX: K08.89 Other specified disorders of teeth and supporting structures (principal); F17.210 Nicotine dependence, cigarettes, uncomplicated; Z88.1 Allergy status to other antibiotic agents; Z88.5 Allergy status to narcotic agent
CPT/HCPCS: 99212; G0463